=== PATIENT | female | born 1960 | race Caucasian/White ===

== ENCOUNTER 2018-05-15 15:03 | Inpatient (IN) | payer BC ==
[~2018-05-15] VITALS: Ht 160 cm; Wt 79.4 kg
--- NOTE | 2018-05-15 15:10 | NUR ---
BIB SELF W C/O SHARP CHEST PAIN, NON-RADIATING, 8/10 PS, STARTED TUESDAY AND WORST TODAY, TO ER BED 11, HOOKED TO MONITOR, CHANGED TO GOWN, AWAITING MD DILLON
--- NOTE | 2018-05-15 15:11 | NUR ---
DR SORIANO AT [facility]
[2018-05-15 15:23] LABS: BASOPHILS # (AUTO) 0.1 /CMM (0.0-0.2); BASOPHILS % (AUTO) 0.4 % (0.0-2.0); EOSINOPHILS % (AUTO) 0.1 % (0.0-6.0); HEMATOCRIT 42 % (33-45); HEMOGLOBIN 14.2 g/dL (11.5-14.8); LYMPHOCYTES # (AUTO) 1.5 /CMM (0.8-4.8); MEAN CORPUSCULAR HGB CONC 34 g/dl (31.0-36.0); MEAN CORPUSCULAR VOLUME 93 fL (82-100); MONOCYTES # (AUTO) 1.7 /CMM (0.1-1.30); NEUTROPHILS # (AUTO) 15.7 /CMM (1.8-8.9); NEUTROPHILS % (AUTO) 82.5 % (43.0-81.0); PLATELET COUNT (AUTO) 295 /CMM (150-450); RED BLOOD CELL COUNT(AUTO) 4.49 MIL/uL (4.0-5.2)
[2018-05-15] MEDS ORDERED: IBUPROFEN 600 MG TABLET PO ONE ×2 (15:26→15:30)
[2018-05-15] MEDS ORDERED: ASPIRIN 325 MG TABLET ONE (15:26)
[2018-05-15 15:30] LABS: CALCIUM, SERUM 9.3 mg/dL (8.5-10.1); CARBON DIOXIDE 22 mmol/L (21-32); CHLORIDE 101 mmol/L (98-107); CREATININE 1.2 mg/dL (0.6-1.3); GLUCOSE 195 mg/dL (74-106); POTASSIUM 3.3 mmol/L (3.5-5.1); SODIUM SERUM 136 mmol/L (136-145); UREA NITROGEN, BLOOD 13 mg/dL (7-18)
[2018-05-15] MEDS ORDERED: ASPIRIN 325 MG TABLET PO ONE (15:30)
[2018-05-15] MEDS ORDERED: HYDROMORPHONE 1 MG/1 ML DISP.SYRIN IV ONE (16:00)
[2018-05-15] MEDS ORDERED: IV NS 0.9% 1,000 ML IV ONE (16:00)
[2018-05-15] MEDS ORDERED: IV NS 0.9% 250 ML IV ONE (16:09)
[2018-05-15] MEDS ORDERED: CT SWABBABLE VALVE TRANS SET 1 EA INFUS.SET MC ONE (16:09)
[2018-05-15] MEDS ORDERED: IOHEXOL-350 100 ML VIAL IV ONE (16:09)
--- NOTE | 2018-05-15 16:13 | NUR ---
OUT FOR CTA
[2018-05-15] MEDS ORDERED: HYDROMORPHONE INJ 2 MG/ML DISP.SYRIN ONE (16:31)
[2018-05-15] MEDS ORDERED: LEVOFLOXACIN 500 MG /D5W 100ML 500 MG in PREMIX 1 EA IV SCH (17:00)
[2018-05-15] MEDS ORDERED: LEVOFLOXACIN 500 MG /D5W 100ML 100 ML IV ONE (17:08)
[2018-05-15 17:25] LABS: ALBUMIN 3.3 g/dL (3.4-5.0); BILIRUBIN,DIRECT 0.4 mg/dL (0.0-0.2)
--- NOTE | 2018-05-15 19:39 | NUR ---
REPORT GIVEN TO AKHIL MAJANO FOR KRISTA
--- NOTE | 2018-05-15 19:40 | NUR ---
RECEIVED REPORT FROM BRIANA MAJANO FOR KRISTA. PT RESTING COMFORTABLY IN BED. WILL CONTINUE TO MONITOR
--- NOTE | 2018-05-15 20:14 | NUR ---
Pt is assigned to med surg rm#: [id number], DX: cholecystitis, and accepting md: dr ahn
--- NOTE | 2018-05-15 20:40 | NUR ---
GAVE REPORT TO PATRIZIA MAJANO FOR KRISTA
[2018-05-15 21:00] VITALS: BP 119/67
[2018-05-15] MEDS: ONDANSETRON HCL/PF 4 MG/2 ML VIAL IVP PRN (21:10)
[2018-05-15] MEDS: HYDROMORPHONE INJ 2 MG/ML DISP.SYRIN IV PRN (21:14)
--- NOTE | 2018-05-15 21:15 | NUR ---
MS RN NOTES: PT HAD 1 EPISODE OF EMESIS. PT WAS ADMINISTERED ZOFRAN 4MG IV. PT ALSO COMPLAINING OF 8/10 ABDOMEN PAIN. PT WAS ADMINISTERED DILAUDID 0.25MG VIA IV.
[2018-05-15] MEDS ORDERED: ATOR40TA PO (22:07)
[2018-05-15] MEDS ORDERED: METO-356 PO (22:08)
[2018-05-15] MEDS ORDERED: ASPI-1169 PO (22:09)
[2018-05-15] MEDS: IV NS 0.9% 1,000 ML IV PRN (22:11)
--- NOTE | 2018-05-15 22:40 | NUR ---
MS RN OPENING NOTES: RECEIVED PT ON ROOM AIR AND APPEARS TO BE ME IN MILD DISTRESS. PT YAKUT SPEAKING ONLY. DTR AT BEDSIDE. PT HAS IV ON R AC #20G AND IS PATENT AND INTACT. CURRENTLY H/L. INFORMED PT THAT SHE IS TO BE NPO AND THAT IV FLUIDS ARE TO BE STARTED SOON. PT COMPLAINING OF BEING NAUSEOUS. PT ALSO COMPLAINING OF 8/10 LLQ AB PAIN. BED KEPT IN LOW, LOCKED POSITION, AND SIDE RAILS X 2UP. WILL CONTINUE TO MONITOR PT.
[2018-05-16] MEDS ORDERED: PIPERACILLIN /TAZOBACTAM 4.5 G in IV D5W 50 ML IV SCH ×2
--- NOTE | 2018-05-16 01:07 | NUR ---
MS MAJANO NOTES: DR. DESMOND Bolanos AT BEDSIDE. Addendum: 05/16/18 at 0117 by SYLWIA CUADRA RN INFORMED DR. DESMOND Bolanos ABOUT MEDS I INPUTTED THAT PT IS TAKING. PER DR. LOGAN, IT'S OK."PT IS NPO ANYWAYS."
[2018-05-16] MEDS ORDERED: METRONIDAZOLE 500MG/ NS 100ML 100 ML IV ONE (02:28)
[2018-05-16] MEDS: METRONIDAZOLE 500MG/ NS 100ML 500 MG in PREMIX 1 EA IV SCH ×4 (02:35→19:57)
--- NOTE | 2018-05-16 02:41 | NUR ---
MS RN NOTES: FLAGYL OVERRODE FROM ANOTHER UNIT. LATE ORDER PUT IN BY . MANUALLY ADMINISTERED FLAGYL.
[2018-05-16] MEDS: HYDROMORPHONE INJ 2 MG/ML DISP.SYRIN IV PRN ×6 (03:46→22:23)
--- NOTE | 2018-05-16 03:50 | NUR ---
MS RN NOTES: PT COMPLAINING OF 10/10 L UPPER/LOWER AB PAIN RADIATING TO R AB PAIN BY POINTING/SHOWING GESTURES. PT ADMINISTERED DILAUDID 0.25MG VIA IV. WILL CONTINUE TO MONITOR.
[2018-05-16 06:49] LABS: BASOPHILS % (AUTO) 0.1 % (0.0-2.0); HEMATOCRIT 39 % (33-45); HEMOGLOBIN 13.1 g/dL (11.5-14.8); LYMPHOCYTES # (AUTO) 0.9 /CMM (0.8-4.8); LYMPHOCYTES % (AUTO) 4.2 % (20.0-44.0); MEAN CORPUSCULAR HGB CONC 34 g/dl (31.0-36.0); MEAN CORPUSCULAR VOLUME 94 fL (82-100); MONOCYTES # (AUTO) 1.1 /CMM (0.1-1.30); MONOCYTES % (AUTO) 5.3 % (2.0-12.0); NEUTROPHILS # (AUTO) 18.8 /CMM (1.8-8.9); NEUTROPHILS % (AUTO) 90.4 % (43.0-81.0); PLATELET COUNT (AUTO) 244 /CMM (150-450); RED BLOOD CELL COUNT(AUTO) 4.15 MIL/uL (4.0-5.2); WHITE BLOOD COUNT (AUTO) 20.8 K/uL (4.3-11.0)
[2018-05-16 06:57] LABS: ALBUMIN 2.5 g/dL (3.4-5.0); CREATININE 0.9 mg/dL (0.6-1.3); MAGNESIUM 1.7 mg/dL (1.8-2.4); POTASSIUM 3.6 mmol/L (3.5-5.1); TOTAL PROTEIN, SERUM 6.8 g/dL (6.4-8.2)
--- NOTE | 2018-05-16 07:13 | NUR ---
MS RN CLOSING NOTES: ALL NEEDS WERE ATTENDED AND ANTICIPATED FOR. PT REMAINS ON 2LPM VIA NC AND IS TOLERATING WELL. PT IN DISTRESS AT THIS TIME AND SHE IS COMPLAINING OF PAIN AND THE PAIN IS COMING BACK IN HER ABDOMINAL AREA (R) SIDE. IV IS BEING INFUSED WITH IV NS AT 100ML/HR. BED KEPT IN LOW, LOCKED POSITION, AND SIDE RAILS X 2UP. ENDORSED TO AM NURSE FOR KRISTA.
--- NOTE | 2018-05-16 07:20 | NUR ---
MS/RN NOTE THE PATIENT IS RECEIVED AWAKE AND IN BED. ALERT AND ORIENTED X4. RECEIVING OXYGEN 2L/MIN VIA NASAL CANULA AND DENIES SOB. PATIENT COMPLAINS OF ABDOMINAL PAIN 01/09. REPOSITIONING DONE. WILL ADMINISTERED PRN PAIN MEDICATION SHORTLY ON DUE TIME. RAC G 20 PATENT ADN NORMAL; SALINE INFUSING AT 100 ML/HR AND NO S/S INFILTRATION NOTED. BED LOW AND LOCKED. SIDE RAILS UP X3. CALL LIGHT WITHIN REACH. WILL CONTINUE TO MONITOR.
[2018-05-16 07:29] LABS: THYROID STIMULATING HORMONE 1.834 uIU/mL (0.358-3.74)
[2018-05-16] MEDS: IV NS 0.9% 1,000 ML IV PRN ×2 (07:41→18:55)
--- NOTE | 2018-05-16 07:49 | NUR ---
MS/RN NOTE THE PATIENT COMPLAINED OF ABDOMINAL PAIN 01/09. PRN DILAUDID IV PUSH IS GIVEN. WILL CONTINUE TO MONITOR.
[2018-05-16 08:00] VITALS: BP 89/49
[2018-05-16] MEDS: PANTOPRAZOLE 40 MG VIAL IV SCH (09:42)
[2018-05-16] MEDS: Magnesium 1GM/D5W 100ML PREMIX 100 ML IV SCH ×2 (10:19→12:57)
[2018-05-16] MEDS ORDERED: IV NS 0.9% 1,000 ML BAG IV ONE (10:30)
[2018-05-16] MEDS: ONDANSETRON HCL/PF 4 MG/2 ML VIAL IVP PRN ×2 (10:55→19:57)
[2018-05-16] MEDS ORDERED: IV NS 0.9% 1,000 ML IV ONE (11:00)
--- NOTE | 2018-05-16 12:52 | NUR ---
MS/RN NOTE DILAUDID 1 MG IV PUSH GIVEN AT 1000 BUT IT WAS NOT SCANNED. WITNESSED BY GRETEL MENDOSA.
[2018-05-16 16:00] VITALS: BP 119/68
--- NOTE | 2018-05-16 16:30 | NUR ---
Patient is alert,speaks Greek. She lives locally with family, she is ambulatory and independent with adl's. Has no DME or homehealth reported. Has good family support. Current dc plan is to return home, family will provide ride. Addendum: 05/16/18 at 1630 by DEDE PEDRAZA RN Amended: Links added.
[2018-05-16] MEDS ORDERED: LEVOFLOXACIN 750 MG /D5W 150ML 750 MG in PREMIX 1 EA IV SCH ×4 (17:00)
[2018-05-16] MEDS ORDERED: LEVOFLOXACIN 500 MG /D5W 100ML 500 MG in PREMIX 1 EA IV SCH (17:00)
--- NOTE | 2018-05-16 18:23 | NUR ---
MS/RN CLOSING NOTE THE PATIENT IS ALERT AND ORIENTED X4. RECEIVING OXYGEN 2L/MIN VIA NASAL CANNULA AND SATURATION IS AT 97%. DENIES PAIN AT THIS TIME. THE PATIENT REMAINS NPO. RAC G 20 PATENT AND NORMAL SALINE INFUSING AT 100 ML/HR AND NO S/S INFILTRATION NOTED. BED LOW AND LOCKED. SIDE RAILS UP X3. CALL LIGHT WITHIN REACH. WILL ENDORSE TO [employer].
--- NOTE | 2018-05-16 19:00 | NUR ---
RN OPENING NOTES PT AWAKE AND RESTING IN BED. FAMILY AT BEDSIDE. PT PRIMARILY MALDIVIAN SPEAKER. NO COMPLAINTS OF PAIN, SOB OR DISTRESS AT THIS TIME. PT ON 2L OF O2 VIA NASAL CANNULA. PT HAS A RIGHT AC #20 IV INTACT AND PATENT RUNNING NS @100 ML/HR. PT IS SCHEDULED FOR ERCP TOMORROW, WILL HAVE CONSENTS SIGNED AND PATIENT READY. PT CONTINUES TO BE NPO AT THIS TIME. SAFETY PRECAUTIONS IN PLACE, BED IN LOWEST LOCKED POSITION, X2 SIDE RAILS UP AND CALL LIGHT WITHIN REACH. WILL CONTINUE TO MONITOR.
[2018-05-16 20:00] VITALS: BP 122/69
[2018-05-17] MEDS: METRONIDAZOLE 500MG/ NS 100ML 500 MG in PREMIX 1 EA IV SCH ×3 (01:14→13:21)
[2018-05-17] MEDS: HYDROMORPHONE INJ 2 MG/ML DISP.SYRIN IV PRN ×2 (04:54→11:07)
[2018-05-17 06:41] LABS: BASOPHILS % (AUTO) 0.2 % (0.0-2.0); EOSINOPHILS % (AUTO) 0.5 % (0.0-6.0); HEMATOCRIT 36 % (33-45); HEMOGLOBIN 11.8 g/dL (11.5-14.8); LYMPHOCYTES # (AUTO) 1.1 /CMM (0.8-4.8); LYMPHOCYTES % (AUTO) 7.5 % (20.0-44.0); MEAN CORPUSCULAR HGB CONC 33 g/dl (31.0-36.0); MEAN CORPUSCULAR VOLUME 93 fL (82-100); MONOCYTES % (AUTO) 6.9 % (2.0-12.0); NEUTROPHILS # (AUTO) 12.5 /CMM (1.8-8.9); NEUTROPHILS % (AUTO) 84.9 % (43.0-81.0); PLATELET COUNT (AUTO) 271 /CMM (150-450); RED BLOOD CELL COUNT(AUTO) 3.85 MIL/uL (4.0-5.2); WHITE BLOOD COUNT (AUTO) 14.7 K/uL (4.3-11.0)
[2018-05-17 06:51] LABS: ALBUMIN 2.3 g/dL (3.4-5.0); BILIRUBIN,TOTAL 0.4 mg/dL (0.2-1.0); CREATININE 0.8 mg/dL (0.6-1.3); MAGNESIUM 2.3 mg/dL (1.8-2.4); PHOSPHORUS 2.7 mg/dL (2.5-4.9); TOTAL PROTEIN, SERUM 6.4 g/dL (6.4-8.2)
[2018-05-17] MEDS: IV NS 0.9% 1,000 ML IV PRN (07:00)
[2018-05-17] MEDS ORDERED: POTASSIUM CL. PREMIX PERIPHER. 50 ML IV SCH (07:30)
--- NOTE | 2018-05-17 07:39 | NUR ---
MS RN OPENING NOTES RECEIVED PT STANDING IN ROOM. PT IS A/O 4, AFEBRILE. RESPIRATIONS ARE EVEN AND UNLABORED, NOT IN ANY ACUTE DISTRESS NOTED. DENIES ANY CHEST PAIN, SOB, N/V. IV SITE TO RAC INTACT, NO INFILTRATION NOTED. DRESSING KEPT CLEAN AND DRY. SAFETY MEASURES ARE IN PLACE. INSTRUCTED PT TO USE CALL LIGHT WHEN ASSISTANCE IS NEEDED, CALL LIGHT IS LEFT WITHIN REACH. WILL CONTINUE TO MONITOR THROUGHOUT SHIFT FOR CONTINUITY OF CARE.
[2018-05-17] MEDS ORDERED: ROCURONIUM BROMIDE 50 MG/5 ML ONE (07:43)
[2018-05-17] MEDS ORDERED: MIDAZOLAM HCL 2 MG/2ML VIAL ONE (07:43)
--- NOTE | 2018-05-17 07:49 | NUR ---
MS RN NOTES-- PT P/U BY OR FOR ERCP IN STABLE CONDITION. NO NEW SKIN ISSUES NOTED.
[2018-05-17] MEDS ORDERED: ANESTHESIA TRAY IN PYXIS 1 EA TRAY MC ONE (07:53)
[2018-05-17 08:00] VITALS: BP 142/68
[2018-05-17] MEDS ORDERED: HYDROMORPHONE INJ 2 MG/ML DISP.SYRIN ONE (08:01)
[2018-05-17] MEDS ORDERED: IOHEXOL 240MG/ML 50 ML IV ONE (08:04)
[2018-05-17] MEDS ORDERED: INDOMETHACIN 50 MG SUPP.RECT ONE (08:07)
[2018-05-17] MEDS ORDERED: ALBUTEROL FS 2.5 MG/3 ML VIAL.NEB ONE (09:14)
--- NOTE | 2018-05-17 09:30 | NUR ---
MS RN NOTES-- PT CAME BACK FROM OR IN STABLE CONDITION W/ ORDERS FROM DR. RODRIGUEZ TO RESUME ALL MEDICATIONS, CLEAR LIQUID DIET AND INCENTIVE SPIROMETRY Q1H WHILE AWAKE. ORDERS READ BACK AND VERIFIED, NOTED AND CARRIED OUT.
[2018-05-17] MEDS ORDERED: IV LR 1000 ML 1,000 ML IV ONE ×2 (10:00)
[2018-05-17] MEDS: PANTOPRAZOLE 40 MG VIAL IV SCH (10:16)
[2018-05-17] MEDS ORDERED: POTASSIUM CHLORIDE 20 MEQ POWDER PACKET PO ONE (10:30)
[2018-05-17] MEDS ORDERED: HYDROMORPHONE INJ 2 MG/ML DISP.SYRIN IV PRN (14:00)
--- NOTE | 2018-05-17 14:50 | NUR ---
MS RN NOTES-- PT SEEN AND EXAMINED BY RADHA BOSTON.
[2018-05-17] MEDS ORDERED: PANT40VI IV (14:53)
[2018-05-17] MEDS ORDERED: ONDA4VIA23 IVP (14:53)
[2018-05-17] MEDS ORDERED: METR500T IV (14:56)
[2018-05-17] MEDS ORDERED: LEVO750T21 IV (14:56)
--- NOTE | 2018-05-17 15:31 | NUR ---
MS RN NOTES-- EXPLAINED DISCHARGE PAPERWORK TO PT AND DAUGHTER WILLEM WITH VERBAL AND WRITTEN UNDERSTANDING. BELONGINGS LIST WAS DONE. PT IS CURRENTLY WEARING BOTH UPPER AND LOWER DENTURES. GAVE REPORT TO ERIC FROM [facility]. WAITING TRANSPORTATION.
--- NOTE | 2018-05-17 16:30 | NUR ---
MS TOE FORMER NOTES PT DISCHARGE TO [facility] IN STABLE CONDITION. PT IS A/O X4, AFEBRILE. RESPIRATIONS ARE EVEN AND UNLABORED, NOT IN ANY ACUTE DISTRESS NOTED. PT DENIES ANY CHEST PAIN AT THIS TIME, NO C/O SOB, N/V. PUPILS ARE REACTIVE TO LIGHT, BILATERAL HAND EMBRYOLOGY PROFESSOR ARE STRONG AND EQUAL. DENIES ANY BLADDER DISCOMFORT. IV SITE TO RAC INTACT, DRESSING KEPT CLEAN AND DRY. PT P/U BY [facility] WITH 2 EMT PERSONNEL. PT LEFT IN STABLE CONDITION.
== END 2018-05-17 16:30 | disposition short-term general hospital (02) | DRG 872 ==
LOC: ER 15:04 → MEDSG2 20:17
PROVIDERS: ATTEND Hospitalist
PROC: BF10YZZ Fluoroscopy of Bile Ducts using Other Contrast (ICD-10-PCS; principal; 2018-05-17)
PROC: 0FC98ZZ Extirpation of Matter from Common Bile Duct, Via Natural or Artificial Opening Endoscopic (ICD-10-PCS; principal; 2018-05-17)
DX: A41.9 Sepsis, unspecified organism (principal); K80.62 Calculus of gallbladder and bile duct with acute cholecystitis without obstruction; E44.0 Moderate protein-calorie malnutrition; E87.6 Hypokalemia; E78.5 Hyperlipidemia, unspecified; I10 Essential (primary) hypertension; E11.65 Type 2 diabetes mellitus with hyperglycemia; E83.39 Other disorders of phosphorus metabolism; E83.42 Hypomagnesemia; Z88.0 Allergy status to penicillin; Z68.31 Body mass index [BMI] 31.0-31.9, adult; R74.8 Abnormal levels of other serum enzymes; E88.09 Other disorders of plasma-protein metabolism, not elsewhere classified; K76.0 Fatty (change of) liver, not elsewhere classified
CPT/HCPCS: 36415; 71045-TC; 74018; 74181-TC; 76705-TC; 80048-TC; 80053-TC; 80061-TC; 80076-TC; 83690-TC; 83735-TC; 84100-TC; 84443-TC; 84484-TC; 85025-TC; 85730-TC; 87081-TC; A4216; C9113; G0378; J0330; J1170; J1956; J2250; J2405; J2543; J2704; J2710; J3475; J3490; J7030; J7050; J7060; J7120; Q9966; Q9967